=== PATIENT | female | born 1945 | race Caucasian/White ===

== ENCOUNTER → 2019-05-17 | Outpatient (CLI) | payer MEDICARE, BC ==
[2014-06-22 09:14] VITALS: BP 137/78
[~2019-05-17] MED LIST: ASPI-630 PO; CALC500T30 PO; CHOL500016 PO; CYAN-25 PO; DENO60DI SQ; IBUP-1027 PO; METO25TA4 PO; OCUVITE SOFTGE1 EACH PO; OMEG1CAP29 PO; RALO60TA PO
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
== END ==
LOC: PNCL 07:41
PROVIDERS: ATTEND Anesthesiology
DX: M54.2 Cervicalgia (principal); M19.90 Unspecified osteoarthritis, unspecified site
CPT/HCPCS: G0463

== ENCOUNTER → 2019-07-08 | Outpatient (CLI) | payer MEDICARE ==
[2014-06-22 09:14] VITALS: BP 137/78
[~2019-07-08] MED LIST changes: +FLUO10CA14 PO; +IOHEXOL 180 MG/ML 10 ML VIAL. ONE; +methylPREDNISolone ACETATE 40 MG/ML VIAL. ONE; +methylPREDNISolone ACETATE 80 MG/ML VIAL. ONE
--- NOTE | 2019-07-08 10:28 | PAIN ---
DATE OF SERVICE: 07/08/2019 PROGRESS NOTE FOR PAIN CLINIC DIAGNOSES: Cervical radiculopathy with cervical degenerative disk disease and cervical spinal stenosis. HISTORY OF PRESENT ILLNESS: The patient is a 73-year-old female who returns for followup status post initial evaluation and physical therapy. The patient has had several sessions now she reports, but no significant improvement in pain in the base of neck and shoulders, especially in the right upper extremity. The patient reports the pain is still there. She is doing some stretching and strengthening exercises at home, but not significantly improved. The patient reports it still worse with raising her arms over her head especially on the right side, repetitive motions, weight lifting or bearing or using fine motor movements with her fingers, especially again in the hands and with some tingling and numbness in the hands. The patient describes the pain as aching in the neck, shooting into the upper extremities, tingling and burning in the hands average, rates as a 7 on a scale of 10 at its worst, 7 on average, 2 at its least and is a 7 on a scale of 10 today. The patient reports no new motor or sensory deficits, awakens her from sleep about every 4 hours, but not every night. The patient reports no other deficits or other concerns. PHYSICAL EXAMINATION: VITAL SIGNS: The patient's blood pressure is 136/77, pulse 60, respirations are 18, temperature 97.8 degrees Fahrenheit. Height is 4 feet 10 inches and weight is 146 pounds. GENERAL: The patient is awake, alert, oriented, appropriate, very pleasant demeanor. HEENT: Head shows normocephalic, atraumatic. Extraocular movements are intact and symmetrical. Oral cavity shows mucous membranes are moist and pink. Dentition is intact. NECK: Shows anterior throat supple without palpable lymphadenopathy noted. Swallow reflex symmetrical. CHEST: Shows normal on inspection. Breath sounds are clear to auscultation bilaterally. HEART: Shows S1, S2 clear. No murmurs auscultated. ABDOMEN: Soft, nontender, nondistended. No palpable organomegaly is noted. There is no rebound or guarding demonstrated. BACK: Shows spine grossly in the midline. Normal appearing thoracic kyphosis and cervical lordotic curvature. Cervical paraspinous muscle shows symmetrical on inspection, on palpation shows some moderate tenderness diffusely bilaterally going diffusely without significant radiation. The patient's neck shows good rotational motion both laterally of greater than 45 degrees closer to 90 degrees as well as extension and flexion without significant increase in pain. EXTREMITIES: The patient's upper extremities showed deep tendon reflexes at 2+ in the biceps and triceps tendons. Motor exam is strong with canvas repairer strength rated at 5/5 as is bicep and tricep flexion. Peripheral pulses are 2+ radial. No peripheral edema is noted bilaterally. Options were discussed with the patient. The patient's old chart was reviewed as her current medication regimen updated. Current review of systems updated today as well and we will proceed with a cervical epidural steroid injection today with fluoroscopic guidance. Risks were again discussed including, but not limited to bleeding, infection, possibility of epidural hematoma, subsequent neurological compromise, dural puncture, headaches, spinal cord and/or nerve damage, side effects of steroid medication and poor results regarding pain control. The patient understands and wished to proceed. The patient will return to clinic in approximately 2 weeks for followup. She was counseled on return appointment, activity level and side effects to be aware of. DIAGNOSES: Cervical radiculopathy with cervical degenerative disk disease and cervical spinal stenosis. PROCEDURE: Cervical epidural steroid injection with translaminar approach to C6-C7 level using C-arm fluoroscopic guidance under sterile prep and drape using local anesthetic. MEDICATIONS INJECTED: A total of 120 mg Depo-Medrol plus 10 mL of preservative-free normal saline and 2 mL of contrast. CONDITION AT DISCHARGE: Stable. The patient tolerated the procedure well and had no complications. CHI ROBERTO MD DR: HANH/julio JOB#: [id number] / [id number]
== END ==
LOC: PNCL 09:47
PROVIDERS: ATTEND Anesthesiology
DX: M50.123 Cervical disc disorder at C6-C7 level with radiculopathy (principal); M48.02 Spinal stenosis, cervical region
CPT/HCPCS: 62321; J1030; J1040; Q9965